=== PATIENT | male | born 1960 | race African-American/Black ===

== ENCOUNTER 2019-08-17 09:57 | Inpatient (IN) | payer OTHER ==
[2019-08-17 11:07] VITALS: BMI 28.5
--- NOTE | 2019-08-17 11:42 | HP ---
CIWA Score Nausea/Vomitin-Mild Nausea/No Vomiting Muscle Tremors: None Anxiety: 1-Mildly Anxious Agitation: 1-Slight > Activity Paroxysmal Sweats: 1-Minimal Palms Moist Orientation: 0-Oriented Tacttile Disturbances: 0-None Auditory Disturbances: 0-None Visual Disturbances: 0-None Headache: 0-None Present CIWA-Ar Total Score: 4 - Admission Criteria OASAS Guidelines: Admission for Medically Managed Detox: Requires at least one of the followin. CIWA greater than 12 2. Seizures within the past 24 hours 3. Delirium tremens within the past 24 hours 4. Hallucinations within the past 24 hours 5. Acute intervention needed for co occurring medical disorder 6. Acute intervention needed for co occurring psychiatric disorder 7. Severe withdrawal that cannot be handled at a lower level of care (continued vomiting, continued diarrhea, abnormal vital signs) requiring intravenous medication and/or fluids 8. 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 cocaine - occasional use tobacco - 3 cigs/day PMHX : hiv + dx 2000 (rf=ST) goes to [facility] , brought meds , htn, cabg x 4 in 2011 @ [facility] . Exam Limitations: No Limitations - Ebola screening Have you traveled outside of the country in the last 21 days: No Have you had contact with anyone from an Ebola affected area: No Do you have a fever: No - Review of Systems Constitutional: Loss of Appetite EENT: reports: Other (glasses - reading) Respiratory: reports: No Symptoms reported Cardiac: reports: No Symptoms Reported GI: reports: Diarrhea, Nausea, Poor Appetite : reports: No Symptoms Reported Musculoskeletal: reports: Joint Pain (shoulder - chronic pain) Integumentary: reports: No Symptoms Reported Neuro: reports: Headache Endocrine: reports: No Symptoms Reported Psychiatric: reports: Orientated x3 Patient History - Smoking Cessation Smoking history: Current some day smoker Have you smoked in the past 12 months: Yes Hx Chewing Tobacco Use: No Initiated information on smoking cessation: Yes 'Breaking Loose' booklet given: 08/17/19 - Substances abused Alcohol Substance route: Oral Frequency: Daily Amount used: (9) 160z can Age of first use: 20 Date of last use: 08/17/19 Admission Physical Exam [facility] - Vital Signs Vital Signs: Vital Signs - 24 hr 08/17/19 10:34 Temperature 97.0 F L Pulse Rate 69 Respiratory 20 Rate Blood Pressure 143/97 - Physical General Appearance: Yes: No Apparent Distress HEENTM: Yes: EOMI, Hearing grossly Normal, Normocephalic, Normal Voice, Other ( upper dentures) Respiratory: Yes: Chest Non-Tender, Lungs Clear, Normal Breath Sounds, No Respiratory Distress, No Accessory Muscle Use Neck: Yes: No masses,lesions,Nodules, Trachea in good position Cardiology: Yes: Regular Rhythm, Regular Rate, S1, S2 Abdominal: Yes: Non Tender, Soft Back: Yes: Normal Inspection Musculoskeletal: Yes: Gait Steady Extremities: Yes: Non-Tender Neurological: Yes: Fully Oriented, Alert, Motor Strength 5/5 Integumentary: Yes: Warm - Diagnostic (1) Alcohol use disorder Current Visit: Yes Status: Acute (2) Cocaine abuse, episodic use Current Visit: Yes Status: Acute Breathalyzer - Breathalyzer Breathalyzer: 0 Urine Drug Screen - Test Device Lot number: [id number] Expiration date: 03/31/20 - Control Is test valid?: Yes - Results Drug screen NEGATIVE: No Urine drug screen results: MARGOT-Cocaine Inpatient Rehab Admission - Rehab Decision to Admit Inpatient rehab admission?: Yes - Initial Determination Are CD services needed?: Yes Free of communicable disease: Yes Not in need of hospitalization: Yes - Rehab Admission Criteria Previous failed treatment: No Poor recovery environment: No Comorbidities: No Lacks judgement: Yes Patient is meeting Inpatient Rehab admission criteria:: Yes
[2019-08-17] MEDS ORDERED: IBUPROFEN 400 MG TABLET (FP) PO PRN (11:56)
[2019-08-17] MEDS ORDERED: LOPERAMIDE HCL 2 MG CAPSULE PO PRN (11:56)
[2019-08-17] MEDS ORDERED: MAGNESIUM HYDROX 2400MG/30ML ORAL SUSPENSION 30 ML CUP PO PRN (11:56)
[2019-08-17] MEDS ORDERED: P-EPHED 60MG/TRIPROLIDI 2.5MG TABLET PO PRN (11:56)
[2019-08-17] MEDS ORDERED: MAG HYDROX/AL HYDROX/SIMETH 30 ML UNIT-DOSE CUP PO PRN (11:56)
[2019-08-17] MEDS ORDERED: hydrOXYzine PAMOATE 25 MG CAPSULE (FP) PO PRN (11:56)
[2019-08-17] MEDS ORDERED: guaiFENesin 200 MG/10 ML 10 ML UNIT-DOSE CUPS PO PRN (11:56)
[2019-08-17] MEDS ORDERED: ACETAMINOPHEN 325 MG TABLET (FP) PO PRN (11:56)
[2019-08-17] MEDS ORDERED: MAGNESIUM CITRATE 300 ML BOTTLE PO PRN (11:56)
[2019-08-17] MEDS ORDERED: MENTHOL/PHENOL 1 EACH UD MM PRN (11:56)
[2019-08-17] MEDS: CLOPIDOGREL BISULFATE 75 MG TABLET (FP) PO SCH (14:16)
[2019-08-17] MEDS: amLODIPine BESYLATE 5 MG TABLET (FP) PO SCH (14:16)
[2019-08-17] MEDS: HYDROCHLOROTHIAZIDE 25 MG TABLET (FP) PO SCH (14:16)
[2019-08-17] MEDS: ASPIRIN 81 MG CHEWABLE TABLETS PO SCH (14:17)
[2019-08-17] MEDS: LOSARTAN POTASSIUM 50 MG TABLET (FP) PO SCH (14:17)
[2019-08-17 15:23] LABS: HEMATOCRIT 39.7 % (35.4-49); HEMOGLOBIN 13.6 GM/dL (11.7-16.9); MCH 31.2 pg (25.7-33.7); MCHC 34.3 g/dl (32.0-35.9); MEAN CELL VOLUME 90.8 fl (80-96); MEAN PLT VOLUME 9.8 fl (7.5-11.1); PLATELET COUNT 230 K/MM3 (134-434); RBC 4.38 M/mm3 (4.00-5.60); RDW 14.7 % (11.9-15.9); WHITE BLOOD COUNT 6.6 K/mm3 (4.0-10.0)
[2019-08-17 15:41] LABS: BILIRUBIN,TOTAL 0.5 mg/dL (0.2-1); BLOOD UREA NITROGEN 35.3 mg/dL (7-18); CALCIUM 9.3 mg/dL (8.5-10.1); CREATININE 2.1 mg/dL (0.55-1.3); TOT PROT 8.9 g/dl (6.4-8.2)
[2019-08-17] MEDS: FENOFIBRIC ACID 135 MG CAP PO SCH (15:46)
[2019-08-17 15:50] LABS: POTASSIUM 2.9 mmol/L (3.5-5.1)
[2019-08-17] MEDS ORDERED: TUBERCULIN PPD 5 TU/0.1ML VIAL ID ONE (15:52)
--- NOTE | 2019-08-17 16:05 | PN ---
[facility] Progress Note Note: S:Patient with abnormal potassium level, elevated creatinine and BUN. On HCTZ, HIV positive. Limited hx in chart. Possible renal impairment(?) Abnormal Lab Results 08/17/19 12:15 Potassium 2.9 L* BUN 35.3 H Creatinine 2.1 H Random Glucose 115 H AST 40 H Total Protein 8.9 H O;P/E:unchanged from admission physical General: no apparent distress HEENTM: normocephalic NEck: supple Lungs: cecy Heart: s1 s2 Neuro: CN 2-12 intact, no neurological deficits. AP: hypokalemia-Potassium 40meq x 3 doses, repeat chemistries. Consult for resident to be placed.
[2019-08-17] MEDS: ETRAVIRINE PO SCH (16:12)
[2019-08-17] MEDS: PATIENT'S OWN MEDICATION (NON-FORMULARY) (Emtricitabine/Tenofov Alafenam [Descovy 200-25 M PO SCH (16:14)
[2019-08-17] MEDS: PATIENT'S OWN MEDICATION (NON-FORMULARY) (Dolutegravir Sodium [Tivicay] 50 MG) PO SCH (16:14)
[2019-08-17] MEDS ORDERED: PT OWN MED DRAWER 7, Y5N ONE (16:16)
[2019-08-17] MEDS ORDERED: POTASSIUM CHLORIDE ORAL LIQUID 20 MEQ/15 ML PO ONE (17:00)
--- NOTE | 2019-08-17 17:20 | CONSULT ---
Consultation: REQUESTING PROVIDER: CONSULT REQUEST: We have been asked to medically evaluate this patient for hypokalemia, MT HISTORY OF PRESENT ILLNESS: 59 year old male with a history of HIV (diagnosed in 2000), hypertension, CABG x4 vessel disease in 2010 here for rehab from alcohol use. Consult placed for hypokalemia 2.9 and elevated creatinine at 2.1. Was told before he had low potassium. Never had kidney disease in the past. No acute complaints. Denies chest pain, palpitations, shortness of breath, nausea, vomiting, diarrhea, fevers, chills. Patient is on HCTZ as a diuretic. Also on losartan. Smoke: 3 cigs/day, 3 years now Alcohol: every day Surgery: quadruple bypass Family: no family history of cancer, heart disease, stroke, kidney disease REVIEW OF SYSTEMS: CONSTITUTIONAL: Absent: fever, chills, diaphoresis, generalized weakness, malaise, loss of appetite, weight change HEENT: Absent: rhinorrhea, nasal congestion, throat pain, throat swelling, difficulty swallowing, mouth swelling, ear pain, eye pain, visual changes CARDIOVASCULAR: Absent: chest pain, syncope, palpitations, irregular heart rate, lightheadedness , peripheral edema RESPIRATORY: Absent: cough, shortness of breath, dyspnea with exertion, orthopnea, wheezing, stridor, hemoptysis GASTROINTESTINAL: Absent: abdominal pain, abdominal distension, nausea, vomiting, diarrhea, constipation, melena, hematochezia GENITOURINARY: Absent: dysuria, frequency, urgency, hesitancy, hematuria, flank pain, genital pain MUSCULOSKELETAL: Absent: myalgia, arthralgia, joint swelling, back pain, neck pain SKIN: Absent: rash, itching, pallor HEMATOLOGIC/IMMUNOLOGIC: Absent: easy bleeding, easy bruising, lymphadenopathy, frequent infections ENDOCRINE: Absent: unexplained weight gain, unexplained weight loss, heat intolerance, cold intolerance NEUROLOGIC: Absent: headache, focal weakness or paresthesias, dizziness, unsteady gait, seizure, mental status changes, bladder or bowel incontinence PSYCHIATRIC: Absent: anxiety, depression, suicidal or homicidal ideation, hallucinations. PHYSICAL EXAMINATION Vital Signs - 24 hr 08/17/19 10:34 Temperature 97.0 F L Pulse Rate 69 Respiratory 20 Rate Blood Pressure 143/97 GENERAL: A&Ox3, no acute distress EYES: PERRLA, EOMI ENT: Moist mucus membranes NECK: No JVD LUNGS: CTA, no wheezes HEART: irregularly regular, no murmurs ABDOMEN: Soft, nontender, BS present MUSCULOSKELETAL: No CVA Tenderness EXTREMITIES: 2+ pulses, no edema. NEUROLOGICAL: Cranial nerves II-XII intact. Laboratory Results - last 24 hr 08/17/19 08/17/19 12:15 12:15 WBC 6.6 RBC 4.38 Hgb 13.6 Hct 39.7 MCV 90.8 MCH 31.2 MCHC 34.3 RDW 14.7 Plt Count 230 MPV 9.8 Sodium 138 Potassium 2.9 L* Chloride 99 Carbon Dioxide 30 Anion Gap 9 BUN 35.3 H Creatinine 2.1 H Est GFR (CKD-EPI)AfAm 39.31 Est GFR (CKD-EPI)NonAf 33.92 Random Glucose 115 H Calcium 9.3 Total Bilirubin 0.5 AST 40 H ALT 44 Alkaline Phosphatase 92 Total Protein 8.9 H Albumin 4.0 Active Medications Generic Name Dose Route Start Last Admin Trade Name Freq PRN Reason Stop Dose Admin Acetaminophen 650 mg 08/17/19 11:56 Tylenol - PO Q4H PRN FEVER Al Hydroxide/Mg Hydroxide 30 ml 08/17/19 11:56 Mylanta Oral Suspension - PO Q6H PRN DYSPEPSIA Amlodipine Besylate 5 mg 08/17/19 13:00 08/17/19 14:16 Norvasc - PO 5 mg DAILY KEM Administration Aspirin 81 mg 08/17/19 13:00 08/17/19 14:17 Asa - PO 81 mg DAILY KEM Administration Atorvastatin Calcium 20 mg 08/17/19 22:00 Lipitor - PO HS [facility] Clopidogrel Bisulfate 75 mg 08/17/19 13:00 08/17/19 14:16 Plavix - PO 75 mg DAILY [facility] Administration Eucalyptus/Menthol/Phenol/Sorbitol 1 each 08/17/19 11:56 Cepastat Lozenge - MM Q4H PRN SORE THROAT Fenofibric Acid 135 mg 08/17/19 13:00 08/17/19 15:46 Trilipix - PO 135 mg DAILY EKM Administration Guaifenesin 10 ml 08/17/19 11:56 Robitussin - PO Q6H PRN COUGH Hydrochlorothiazide 25 mg 08/17/19 13:00 08/17/19 14:16 Hctz - PO 25 mg DAILY KEM Administration Hydroxyzine Pamoate 25 mg 08/17/19 11:56 Vistaril - PO Q4H PRN AGITATION Loperamide HCl 4 mg 08/17/19 11:56 Imodium - PO Q6H PRN DIARRHEA Losartan Potassium 100 mg 08/17/19 13:00 08/17/19 14:17 Cozaar - PO 100 mg DAILY KEM Administration Magnesium Citrate 300 ml 08/17/19 11:56 Citroma - PO Q48H PRN CONSTIPATION Magnesium Hydroxide 30 ml 08/17/19 11:56 Milk Of Magnesia - PO DAILY PRN CONSTIPATION Melatonin 5 mg 08/17/19 22:00 Melatonin PO HS PRN INSOMNIA Metoprolol Succinate 50 mg 08/17/19 13:00 08/17/19 15:45 Toprol Xl - PO 50 mg DAILY KEM Administration Non-Formulary Medication 50 mg 08/17/19 12:00 08/17/19 16:14 Dolutegravir Sodium [Tivicay] PO 50 mg DAILY KEM Administration Non-Formulary Medication 1 each 08/17/19 12:00 08/17/19 16:14 Emtricitabine/Tenofov Alafenam [Descovy 200-25 Mg Tablet (Nf)] PO 1 each DAILY [facility] Administration Non-Formulary Medication 400 mg 08/17/19 12:00 08/17/19 16:12 Etravirine [Intelence -] PO 400 mg DAILY@0900 [facility] Administration Potassium Chloride 40 meq 08/18/19 06:00 Potassium Chloride Oral Liquid PO 08/18/19 10:01 BID [facility] Multivit/Folic Acid/Iron 1 tab 08/18/19 10:00 Vitamins (Sjr) - PO DAILY [facility] Pseudoephedrine/Triprolidine 1 combo 08/17/19 11:56 Actifed - PO TID PRN NASAL CONGESTION Thiamine HCl 100 mg 08/17/19 22:00 Vitamin B1 - PO HS [facility] ASSESSMENT/PLAN: 59 year old male with a history of HIV (diagnosed in 2000), hypertension, CABG x4 vessel disease in 2010 here for rehab from alcohol use. Consult placed for hypokalemia 2.9 and elevated creatinine at 2.1. #Hypokalemia: potassium measured 2.9 without known baseline; there are many differentials for hypokalemia in this patient including chronic alcoholism, diuretic use, hypomagnesemia, renal dysfunction; patient is not symptomatic at present -recheck potassium -check magnesium and replete if necessary -hold HCTZ tonight (would also hold losartan due to elevated creatinine) -would replete with 40mg KCl PO BID for 2 days -would do EKG -recheck BMP in AM -if continues to be low, would check 24 hour urine potassium excretion as outpatient #Acute Kidney Injury: likely 2/2 prerenal azotemia from decreased renal perfusion; chronic alcoholism a likely contributor -check a urinalysis -would opt to give 1 bag fluids intravenously, preferably with lactated ringers due to the potassium being low, but normal saline otherwise -hold losartan, HCTZ for 1 day as this can exacerbate acute kidney injury -if not normalized, would check urine electrolytes/ (Urine sodium/urine urea/ urine creatinine) to determine type of acute kidney injury -could be a component of chronic kidney disease as patient has history of hypertension with unknown compliance of his medications -recheck BMP in AM -if not improved, would need renal ultrasound and nephrology evaluation Dereck Meza D.O.,PGY3 Visit type - Emergency Visit Emergency Visit: No - New Patient This patient is new to me today: Yes Date on this admission: 08/17/19 - Critical Care Critical Care patient: No ATTENDING PHYSICIAN STATEMENT I saw and evaluated the patient. I reviewed the resident's note and discussed the case with the resident. I agree with the resident's findings and plan as documented. SUBJECTIVE: OBJECTIVE: ASSESSMENT AND PLAN:
[2019-08-17] MEDS ORDERED: SODIUM CHLORIDE 500 ML IV ONE ×2 (18:00)
[2019-08-17] MEDS: MELATONIN 5 MG TABLETS PO PRN (21:35)
[2019-08-17] MEDS: ATORVASTATIN CA 20 MG TABLET (FP) PO SCH (21:35)
[2019-08-17] MEDS: THIAMINE HCL 100 MG TABLET (FP) PO SCH (21:35)
--- NOTE | 2019-08-18 07:59 | PN ---
Teaching Attending Note Name of Resident: Dereck Meza ATTENDING PHYSICIAN STATEMENT I saw and evaluated the patient. I reviewed the resident's note and discussed the case with the resident. I agree with the resident's findings and plan as documented. SUBJECTIVE: OBJECTIVE: ASSESSMENT AND PLAN:
[2019-08-18] MEDS ORDERED: PT OWN MED DRAWER 7, Y5N ONE (08:46)
--- NOTE | 2019-08-18 09:42 | CONSULT ---
[facility] Psychiatric Consult - Data Date of interview: 08/18/19 Admission source: [facility] residence on [address] [place] [address] Identifying data: Me Harris is a 59 years old Black male, father of a 33 years old daughter, unemployed receving [facility], [facility] residence admitted to [facility] on 08/17/19 for inpatient rehab for alcohol and cocaine Substance Abuse History: Reports history of alcohol and cocaine use. Refer to addiction counselor summary for further information Medical History: Significant for HIV+ since 2000, hypertension, coronary artery disease/myocardial infarction and history of coronary artery bypass graft x4 in 2010. Smokes 4 cigarettes daily Psychiatric History: Denies history of previous psychiatric treatment. However reports sleeping poorly Physical/Sexual Abuse/Trauma History: Denies history of emotional, physical or sexual abuse as well as DV relationship Additional Comment: Reports history of multiple arrests including one felony conviction. Denies being on parole/probation at present Mental Status Exam - Mental Status Exam Alert and Oriented to: Time, Place, Person Patient Appearance: Well Groomed Mood: Hopeful, Euthymic Patient Behavior: Cooperative Speech Pattern: Clear Voice Loudness: Normal Thought Process: Intact, Goal Oriented Thought Disorder: Not Present Hallucinations: Denies Suicidal Ideation: Denies Homicidal Ideation: Denies Insight/Judgement: Fair Sleep: Poorly Appetite: Fair Muscle strength/Tone: Normal Gait/Station: Normal Psychiatric Findings - Problem List ([place] 1, 2,3) (1) Substance-induced sleep disorder Current Visit: Yes Status: Acute (2) Alcohol dependence Current Visit: Yes Status: Acute (3) Cocaine abuse Current Visit: Yes Status: Acute (4) Cocaine abuse Current Visit: Yes Status: Acute (5) Nicotine dependence Current Visit: Yes Status: Chronic (6) HIV (human immunodeficiency virus infection) Current Visit: Yes Status: Chronic (7) HTN (hypertension) Current Visit: Yes Status: Chronic (8) CAD (coronary artery disease) Current Visit: Yes Status: Acute (9) S/P CABG (coronary artery bypass graft) Current Visit: Yes Status: Resolved - Initial Treatment Plan Initial Treatment Plan: 1) Start Melatonin 5 mg po HS prn for insomnia. 2) Continue inpatient rehabilitation
[2019-08-18] MEDS: PATIENT'S OWN MEDICATION (NON-FORMULARY) (Dolutegravir Sodium [Tivicay] 50 MG) PO SCH (10:59)
[2019-08-18] MEDS: ETRAVIRINE PO SCH (11:00)
[2019-08-18] MEDS: PATIENT'S OWN MEDICATION (NON-FORMULARY) (Emtricitabine/Tenofov Alafenam [Descovy 200-25 M PO SCH (11:00)
[2019-08-18] MEDS: amLODIPine BESYLATE 5 MG TABLET (FP) PO SCH (11:01)
[2019-08-18] MEDS: ASPIRIN 81 MG CHEWABLE TABLETS PO SCH (11:01)
[2019-08-18] MEDS: CLOPIDOGREL BISULFATE 75 MG TABLET (FP) PO SCH (11:01)
[2019-08-18] MEDS: PRENATAL VITAMINS W/ FOLIC ACID TABLET (FP) PO SCH (11:01)
[2019-08-18] MEDS: POTASSIUM CHLORIDE ORAL LIQUID 20 MEQ/15 ML PO SCH ×2 (11:01→21:22)
[2019-08-18] MEDS: FENOFIBRIC ACID 135 MG CAP PO SCH (11:03)
[2019-08-18] MEDS: ATORVASTATIN CA 20 MG TABLET (FP) PO SCH (21:22)
[2019-08-18] MEDS: THIAMINE HCL 100 MG TABLET (FP) PO SCH (21:22)
[2019-08-18 22:53] LABS: URINE APPEARANCE CLEAR; URINE BILIRUBIN NEGATIVE (NEGATIVE); URINE COLOR YELLOW; URINE GLUCOSE (UA) NEGATIVE (NEGATIVE); URINE KETONE NEGATIVE (NEGATIVE); URINE LEUK ESTERASE NEGATIVE (NEGATIVE); URINE NITRITE NEGATIVE (NEGATIVE); URINE PROTEIN NEGATIVE (NEGATIVE); URINE UROBILINOGEN 0.2 mg/dL (0.2-1.0)
[2019-08-19] MEDS ORDERED: PT OWN MED DRAWER 7, Y5N ONE (08:43)
[2019-08-19] MEDS: CLOPIDOGREL BISULFATE 75 MG TABLET (FP) PO SCH (09:20)
[2019-08-19] MEDS: PRENATAL VITAMINS W/ FOLIC ACID TABLET (FP) PO SCH (09:20)
[2019-08-19] MEDS: amLODIPine BESYLATE 5 MG TABLET (FP) PO SCH (09:21)
[2019-08-19] MEDS: ETRAVIRINE PO SCH (09:21)
[2019-08-19] MEDS: ASPIRIN 81 MG CHEWABLE TABLETS PO SCH (09:21)
[2019-08-19] MEDS: PATIENT'S OWN MEDICATION (NON-FORMULARY) (Emtricitabine/Tenofov Alafenam [Descovy 200-25 M PO SCH (09:21)
[2019-08-19] MEDS: PATIENT'S OWN MEDICATION (NON-FORMULARY) (Dolutegravir Sodium [Tivicay] 50 MG) PO SCH (09:21)
[2019-08-19] MEDS: HYDROCHLOROTHIAZIDE 25 MG TABLET (FP) PO SCH (09:22)
[2019-08-19] MEDS: FENOFIBRIC ACID 135 MG CAP PO SCH (09:22)
[2019-08-19] MEDS: LOSARTAN POTASSIUM 50 MG TABLET (FP) PO SCH (09:23)
[2019-08-19 11:39] LABS: BLOOD UREA NITROGEN 27.4 mg/dL (7-18); CALCIUM 8.9 mg/dL (8.5-10.1); CREATININE 1.5 mg/dL (0.55-1.3); POTASSIUM 3.7 mmol/L (3.5-5.1)
--- NOTE | 2019-08-19 20:13 | EKG ---
Test Reason : Blood Pressure : / mmHG Vent. Rate : 082 BPM Atrial Rate : 082 BPM P-R Int : 172 ms QRS Dur : 096 ms QT Int : 390 ms P-R-T Axes : 055 062 167 degrees QTc Int : 455 ms NORMAL SINUS RHYTHM NONSPECIFIC T WAVE ABNORMALITY ABNORMAL ECG NO PREVIOUS ECGS AVAILABLE Confirmed by MD COLUMBA, CARLOS EDUARDO ([id number]) on 08/19/2019 8:13:06 PM Referred By: CRISTIANO TREADWELL Confirmed By:CARLOS EDUARDO WATERMAN MD
[2019-08-19] MEDS: MELATONIN 5 MG TABLETS PO PRN (21:23)
[2019-08-19] MEDS: ATORVASTATIN CA 20 MG TABLET (FP) PO SCH (21:23)
[2019-08-19] MEDS: THIAMINE HCL 100 MG TABLET (FP) PO SCH (21:23)
[2019-08-20] MEDS ORDERED: PT OWN MED DRAWER 7, Y5N ONE ×2 (08:33→10:15)
[2019-08-20] MEDS: amLODIPine BESYLATE 5 MG TABLET (FP) PO SCH (09:45)
[2019-08-20] MEDS: PATIENT'S OWN MEDICATION (NON-FORMULARY) (Emtricitabine/Tenofov Alafenam [Descovy 200-25 M PO SCH (09:45)
[2019-08-20] MEDS: LOSARTAN POTASSIUM 50 MG TABLET (FP) PO SCH (09:45)
[2019-08-20] MEDS: ETRAVIRINE PO SCH (09:45)
[2019-08-20] MEDS: ASPIRIN 81 MG CHEWABLE TABLETS PO SCH (09:45)
[2019-08-20] MEDS: HYDROCHLOROTHIAZIDE 25 MG TABLET (FP) PO SCH (09:45)
[2019-08-20] MEDS: FENOFIBRIC ACID 135 MG CAP PO SCH (09:45)
[2019-08-20] MEDS: PRENATAL VITAMINS W/ FOLIC ACID TABLET (FP) PO SCH (09:45)
[2019-08-20] MEDS: CLOPIDOGREL BISULFATE 75 MG TABLET (FP) PO SCH (09:45)
[2019-08-20] MEDS: PATIENT'S OWN MEDICATION (NON-FORMULARY) (Dolutegravir Sodium [Tivicay] 50 MG) PO SCH (09:45)
[2019-08-20] MEDS: ATORVASTATIN CA 20 MG TABLET (FP) PO SCH (21:24)
[2019-08-20] MEDS: THIAMINE HCL 100 MG TABLET (FP) PO SCH (21:24)
[2019-08-20] MEDS: MELATONIN 5 MG TABLETS PO PRN (21:24)
[2019-08-21] MEDS ORDERED: PT OWN MED DRAWER 7, Y5N ONE (09:01)
[2019-08-21] MEDS: HYDROCHLOROTHIAZIDE 25 MG TABLET (FP) PO SCH (10:32)
[2019-08-21] MEDS: CLOPIDOGREL BISULFATE 75 MG TABLET (FP) PO SCH (10:32)
[2019-08-21] MEDS: PRENATAL VITAMINS W/ FOLIC ACID TABLET (FP) PO SCH (10:32)
[2019-08-21] MEDS: FENOFIBRIC ACID 135 MG CAP PO SCH (10:32)
[2019-08-21] MEDS: amLODIPine BESYLATE 5 MG TABLET (FP) PO SCH (10:32)
[2019-08-21] MEDS: LOSARTAN POTASSIUM 50 MG TABLET (FP) PO SCH (10:32)
[2019-08-21] MEDS: PATIENT'S OWN MEDICATION (NON-FORMULARY) (Emtricitabine/Tenofov Alafenam [Descovy 200-25 M PO SCH (10:33)
[2019-08-21] MEDS: ASPIRIN 81 MG CHEWABLE TABLETS PO SCH (10:33)
[2019-08-21] MEDS: PATIENT'S OWN MEDICATION (NON-FORMULARY) (Dolutegravir Sodium [Tivicay] 50 MG) PO SCH (10:33)
[2019-08-21] MEDS: ETRAVIRINE PO SCH (10:33)
[2019-08-21] MEDS: THIAMINE HCL 100 MG TABLET (FP) PO SCH (21:23)
[2019-08-21] MEDS: ATORVASTATIN CA 20 MG TABLET (FP) PO SCH (21:23)
[2019-08-21] MEDS: MELATONIN 5 MG TABLETS PO PRN (21:23)
[2019-08-22] MEDS: ASPIRIN 81 MG CHEWABLE TABLETS PO SCH (10:00)
[2019-08-22] MEDS: LOSARTAN POTASSIUM 50 MG TABLET (FP) PO SCH (10:00)
[2019-08-22] MEDS: CLOPIDOGREL BISULFATE 75 MG TABLET (FP) PO SCH (10:00)
[2019-08-22] MEDS: PATIENT'S OWN MEDICATION (NON-FORMULARY) (Dolutegravir Sodium [Tivicay] 50 MG) PO SCH (10:00)
[2019-08-22] MEDS: amLODIPine BESYLATE 5 MG TABLET (FP) PO SCH (10:00)
[2019-08-22] MEDS: HYDROCHLOROTHIAZIDE 25 MG TABLET (FP) PO SCH (10:00)
[2019-08-22] MEDS: PRENATAL VITAMINS W/ FOLIC ACID TABLET (FP) PO SCH (10:00)
[2019-08-22] MEDS: FENOFIBRIC ACID 135 MG CAP PO SCH (10:01)
[2019-08-22] MEDS: PATIENT'S OWN MEDICATION (NON-FORMULARY) (Emtricitabine/Tenofov Alafenam [Descovy 200-25 M PO SCH (10:01)
[2019-08-22] MEDS: ETRAVIRINE PO SCH (10:01)
[2019-08-22] MEDS: THIAMINE HCL 100 MG TABLET (FP) PO SCH (21:20)
[2019-08-22] MEDS: ATORVASTATIN CA 20 MG TABLET (FP) PO SCH (21:20)
[2019-08-22] MEDS: MELATONIN 5 MG TABLETS PO PRN (21:20)
[2019-08-23] MEDS ORDERED: PT OWN MED DRAWER 7, Y5N ONE (08:45)
[2019-08-23] MEDS: ASPIRIN 81 MG CHEWABLE TABLETS PO SCH (10:01)
[2019-08-23] MEDS: PRENATAL VITAMINS W/ FOLIC ACID TABLET (FP) PO SCH (10:01)
[2019-08-23] MEDS: PATIENT'S OWN MEDICATION (NON-FORMULARY) (Dolutegravir Sodium [Tivicay] 50 MG) PO SCH (10:01)
[2019-08-23] MEDS: PATIENT'S OWN MEDICATION (NON-FORMULARY) (Emtricitabine/Tenofov Alafenam [Descovy 200-25 M PO SCH (10:02)
[2019-08-23] MEDS: amLODIPine BESYLATE 5 MG TABLET (FP) PO SCH (10:02)
[2019-08-23] MEDS: LOSARTAN POTASSIUM 50 MG TABLET (FP) PO SCH (10:02)
[2019-08-23] MEDS: HYDROCHLOROTHIAZIDE 25 MG TABLET (FP) PO SCH (10:02)
[2019-08-23] MEDS: CLOPIDOGREL BISULFATE 75 MG TABLET (FP) PO SCH (10:02)
[2019-08-23] MEDS: ETRAVIRINE PO SCH (10:02)
[2019-08-23] MEDS: FENOFIBRIC ACID 135 MG CAP PO SCH (10:03)
[2019-08-23] MEDS: MELATONIN 5 MG TABLETS PO PRN (21:22)
[2019-08-23] MEDS: THIAMINE HCL 100 MG TABLET (FP) PO SCH (21:22)
[2019-08-23] MEDS: ATORVASTATIN CA 20 MG TABLET (FP) PO SCH (21:22)
[2019-08-24] MEDS: PATIENT'S OWN MEDICATION (NON-FORMULARY) (Dolutegravir Sodium [Tivicay] 50 MG) PO SCH (10:40)
[2019-08-24] MEDS: LOSARTAN POTASSIUM 50 MG TABLET (FP) PO SCH (10:40)
[2019-08-24] MEDS: ASPIRIN 81 MG CHEWABLE TABLETS PO SCH (10:40)
[2019-08-24] MEDS: ETRAVIRINE PO SCH (10:40)
[2019-08-24] MEDS: CLOPIDOGREL BISULFATE 75 MG TABLET (FP) PO SCH (10:41)
[2019-08-24] MEDS: HYDROCHLOROTHIAZIDE 25 MG TABLET (FP) PO SCH (10:41)
[2019-08-24] MEDS: PRENATAL VITAMINS W/ FOLIC ACID TABLET (FP) PO SCH (10:41)
[2019-08-24] MEDS: amLODIPine BESYLATE 5 MG TABLET (FP) PO SCH (10:41)
[2019-08-24] MEDS: PATIENT'S OWN MEDICATION (NON-FORMULARY) (Emtricitabine/Tenofov Alafenam [Descovy 200-25 M PO SCH (10:41)
[2019-08-24] MEDS: FENOFIBRIC ACID 135 MG CAP PO SCH (10:42)
--- NOTE | 2019-08-24 15:03 | PN ---
S Progress Note (SOAP) Subjective: This AM at approximately 9AM was informed that the patient's tongue was cut and bleeding and the bleeding did not stop. PMHx of a tongue laceration that also bleed profusely, but healed. Patient is on plavix and aspirin. Objective: P/E HEENTM: Difficult to visualize the laceration because of the bleeding. Profuse bleeding the slows when pressure is held but does not stop. Red, oozing rather than spurting, so it is unlikely an artery was cut. Neuro: CN 2-12 intact. Lungs: clear Heart: s1 s2 CBC, BMP 08/17/19 12:15 08/19/19 10:20 Vital Signs (72 hours) 08/22/19 08/22/19 08/22/19 03:30 07:04 10:35 Temperature 97.8 F Pulse Rate 77 72 Respiratory 18 18 18 Rate Blood Pressure 157/95 168/94 08/23/19 08/23/19 08/23/19 00:30 03:30 06:49 Temperature 97.9 F Pulse Rate 71 Respiratory 20 18 18 Rate Blood Pressure 156/96 08/23/19 08/24/19 08/24/19 09:20 00:30 03:30 Temperature Pulse Rate 77 Respiratory 18 18 Rate Blood Pressure 158/97 08/24/19 08/24/19 08/24/19 07:03 09:30 10:05 Temperature 97.8 F Pulse Rate 69 89 87 Respiratory 18 18 18 Rate Blood Pressure 152/97 156/98 150/97 08/24/19 14:57 Assessment: laceration to tongue with excessive bleeding r/t anticoagulant medications 08/24/19 14:59 Plan: Pressure held. [facility] informed and patient transferred to [facility] ER, dissolvable sutures place. Patient instructed to drink only warm-cool beverages , not to pick or rub the area, and a soft diet was ordered with Ensure 240ml TID while sutures are in and laceration is healing. All meds to be crushed, dissolved in water or mix in apple sauce. The HIV Clinician Warmline was called for consultation on HIV medications. At this time, they recommend crushing all medications for patient.
[2019-08-24] MEDS: MELATONIN 5 MG TABLETS PO PRN (21:37)
[2019-08-24] MEDS: ATORVASTATIN CA 20 MG TABLET (FP) PO SCH (21:37)
[2019-08-24] MEDS: THIAMINE HCL 100 MG TABLET (FP) PO SCH (21:37)
[2019-08-25] MEDS: HYDROCHLOROTHIAZIDE 25 MG TABLET (FP) PO SCH (09:54)
[2019-08-25] MEDS: ASPIRIN 81 MG CHEWABLE TABLETS PO SCH (09:54)
[2019-08-25] MEDS: LOSARTAN POTASSIUM 50 MG TABLET (FP) PO SCH (09:54)
[2019-08-25] MEDS: ETRAVIRINE PO SCH (09:55)
[2019-08-25] MEDS: PATIENT'S OWN MEDICATION (NON-FORMULARY) (Emtricitabine/Tenofov Alafenam [Descovy 200-25 M PO SCH (09:57)
[2019-08-25] MEDS: PATIENT'S OWN MEDICATION (NON-FORMULARY) (Dolutegravir Sodium [Tivicay] 50 MG) PO SCH (09:57)
[2019-08-25] MEDS: amLODIPine BESYLATE 5 MG TABLET (FP) PO SCH (09:58)
[2019-08-25] MEDS: CLOPIDOGREL BISULFATE 75 MG TABLET (FP) PO SCH (09:59)
[2019-08-25] MEDS: FENOFIBRIC ACID 135 MG CAP PO SCH (09:59)
[2019-08-25] MEDS: PRENATAL VITAMINS W/ FOLIC ACID TABLET (FP) PO SCH (09:59)
[2019-08-25] MEDS: THIAMINE HCL 100 MG TABLET (FP) PO SCH (21:48)
[2019-08-25] MEDS: ATORVASTATIN CA 20 MG TABLET (FP) PO SCH (21:48)
[2019-08-25] MEDS: MELATONIN 5 MG TABLETS PO PRN (21:49)
[2019-08-26] MEDS: CLOPIDOGREL BISULFATE 75 MG TABLET (FP) PO SCH (10:00)
[2019-08-26] MEDS: FENOFIBRIC ACID 135 MG CAP PO SCH (10:00)
[2019-08-26] MEDS: amLODIPine BESYLATE 5 MG TABLET (FP) PO SCH (10:00)
[2019-08-26] MEDS: PATIENT'S OWN MEDICATION (NON-FORMULARY) (Emtricitabine/Tenofov Alafenam [Descovy 200-25 M PO SCH (10:01)
[2019-08-26] MEDS: PRENATAL VITAMINS W/ FOLIC ACID TABLET (FP) PO SCH (10:01)
[2019-08-26] MEDS: ETRAVIRINE PO SCH (10:01)
[2019-08-26] MEDS: HYDROCHLOROTHIAZIDE 25 MG TABLET (FP) PO SCH (10:01)
[2019-08-26] MEDS: LOSARTAN POTASSIUM 50 MG TABLET (FP) PO SCH (10:01)
[2019-08-26] MEDS: ASPIRIN 81 MG CHEWABLE TABLETS PO SCH (10:01)
[2019-08-26] MEDS: PATIENT'S OWN MEDICATION (NON-FORMULARY) (Dolutegravir Sodium [Tivicay] 50 MG) PO SCH (10:01)
[2019-08-26] MEDS: ATORVASTATIN CA 20 MG TABLET (FP) PO SCH (22:07)
[2019-08-26] MEDS: THIAMINE HCL 100 MG TABLET (FP) PO SCH (22:07)
[2019-08-26] MEDS: MELATONIN 5 MG TABLETS PO PRN (22:08)
[2019-08-27] MEDS: HYDROCHLOROTHIAZIDE 25 MG TABLET (FP) PO SCH (08:29)
[2019-08-27] MEDS: FENOFIBRIC ACID 135 MG CAP PO SCH (10:21)
[2019-08-27] MEDS: ETRAVIRINE PO SCH (10:22)
[2019-08-27] MEDS: LOSARTAN POTASSIUM 50 MG TABLET (FP) PO SCH (10:22)
[2019-08-27] MEDS: amLODIPine BESYLATE 5 MG TABLET (FP) PO SCH (10:22)
[2019-08-27] MEDS: CLOPIDOGREL BISULFATE 75 MG TABLET (FP) PO SCH (10:22)
[2019-08-27] MEDS: PATIENT'S OWN MEDICATION (NON-FORMULARY) (Dolutegravir Sodium [Tivicay] 50 MG) PO SCH (10:22)
[2019-08-27] MEDS: PRENATAL VITAMINS W/ FOLIC ACID TABLET (FP) PO SCH (10:22)
[2019-08-27] MEDS: ASPIRIN 81 MG CHEWABLE TABLETS PO SCH (10:22)
[2019-08-27] MEDS: PATIENT'S OWN MEDICATION (NON-FORMULARY) (Emtricitabine/Tenofov Alafenam [Descovy 200-25 M PO SCH (10:22)
[2019-08-27] MEDS: THIAMINE HCL 100 MG TABLET (FP) PO SCH (21:31)
[2019-08-27] MEDS: ATORVASTATIN CA 20 MG TABLET (FP) PO SCH (21:31)
[2019-08-27] MEDS: MELATONIN 5 MG TABLETS PO PRN (21:32)
[2019-08-28] MEDS: HYDROCHLOROTHIAZIDE 25 MG TABLET (FP) PO SCH (06:17)
[2019-08-28] MEDS: ETRAVIRINE PO SCH (10:23)
[2019-08-28] MEDS: PATIENT'S OWN MEDICATION (NON-FORMULARY) (Emtricitabine/Tenofov Alafenam [Descovy 200-25 M PO SCH (10:23)
[2019-08-28] MEDS: PATIENT'S OWN MEDICATION (NON-FORMULARY) (Dolutegravir Sodium [Tivicay] 50 MG) PO SCH (10:24)
[2019-08-28] MEDS: PRENATAL VITAMINS W/ FOLIC ACID TABLET (FP) PO SCH (10:25)
[2019-08-28] MEDS: amLODIPine BESYLATE 5 MG TABLET (FP) PO SCH (10:25)
[2019-08-28] MEDS: CLOPIDOGREL BISULFATE 75 MG TABLET (FP) PO SCH (10:25)
[2019-08-28] MEDS: FENOFIBRIC ACID 135 MG CAP PO SCH (10:25)
[2019-08-28] MEDS: ASPIRIN 81 MG CHEWABLE TABLETS PO SCH (11:38)
[2019-08-28] MEDS: LOSARTAN POTASSIUM 50 MG TABLET (FP) PO SCH (11:38)
[2019-08-28] MEDS: THIAMINE HCL 100 MG TABLET (FP) PO SCH (21:17)
[2019-08-28] MEDS: MELATONIN 5 MG TABLETS PO PRN (21:17)
[2019-08-28] MEDS: ATORVASTATIN CA 20 MG TABLET (FP) PO SCH (21:17)
[2019-08-29] MEDS: HYDROCHLOROTHIAZIDE 25 MG TABLET (FP) PO SCH (06:00)
[2019-08-29] MEDS: CLOPIDOGREL BISULFATE 75 MG TABLET (FP) PO SCH (10:07)
[2019-08-29] MEDS: amLODIPine BESYLATE 5 MG TABLET (FP) PO SCH (10:07)
[2019-08-29] MEDS: LOSARTAN POTASSIUM 50 MG TABLET (FP) PO SCH (10:07)
[2019-08-29] MEDS: FENOFIBRIC ACID 135 MG CAP PO SCH (10:07)
[2019-08-29] MEDS: PRENATAL VITAMINS W/ FOLIC ACID TABLET (FP) PO SCH (10:07)
[2019-08-29] MEDS: PATIENT'S OWN MEDICATION (NON-FORMULARY) (Dolutegravir Sodium [Tivicay] 50 MG) PO SCH (10:08)
[2019-08-29] MEDS: ETRAVIRINE PO SCH (10:09)
[2019-08-29] MEDS: PATIENT'S OWN MEDICATION (NON-FORMULARY) (Emtricitabine/Tenofov Alafenam [Descovy 200-25 M PO SCH (10:09)
[2019-08-29] MEDS: ASPIRIN 81 MG CHEWABLE TABLETS PO SCH (10:10)
[2019-08-29] MEDS: ATORVASTATIN CA 20 MG TABLET (FP) PO SCH (21:30)
[2019-08-29] MEDS: THIAMINE HCL 100 MG TABLET (FP) PO SCH (21:30)
[2019-08-29] MEDS: MELATONIN 5 MG TABLETS PO PRN (21:30)
[2019-08-30] MEDS: HYDROCHLOROTHIAZIDE 25 MG TABLET (FP) PO SCH (06:11)
[2019-08-30] MEDS ORDERED: PT OWN MED DRAWER 7, Y5N ONE (08:44)
[2019-08-30] MEDS: LOSARTAN POTASSIUM 50 MG TABLET (FP) PO SCH (10:08)
[2019-08-30] MEDS: FENOFIBRIC ACID 135 MG CAP PO SCH (10:09)
[2019-08-30] MEDS: PRENATAL VITAMINS W/ FOLIC ACID TABLET (FP) PO SCH (10:09)
[2019-08-30] MEDS: amLODIPine BESYLATE 5 MG TABLET (FP) PO SCH (10:09)
[2019-08-30] MEDS: CLOPIDOGREL BISULFATE 75 MG TABLET (FP) PO SCH (10:09)
[2019-08-30] MEDS: ASPIRIN 81 MG CHEWABLE TABLETS PO SCH (10:09)
[2019-08-30] MEDS: ETRAVIRINE PO SCH (10:10)
[2019-08-30] MEDS: PATIENT'S OWN MEDICATION (NON-FORMULARY) (Emtricitabine/Tenofov Alafenam [Descovy 200-25 M PO SCH (10:10)
[2019-08-30] MEDS: PATIENT'S OWN MEDICATION (NON-FORMULARY) (Dolutegravir Sodium [Tivicay] 50 MG) PO SCH (10:11)
[2019-08-30] MEDS: ATORVASTATIN CA 20 MG TABLET (FP) PO SCH (21:20)
[2019-08-30] MEDS: THIAMINE HCL 100 MG TABLET (FP) PO SCH (21:20)
[2019-08-30] MEDS: MELATONIN 5 MG TABLETS PO PRN (21:20)
[2019-08-31] MEDS: HYDROCHLOROTHIAZIDE 25 MG TABLET (FP) PO SCH (06:33)
[2019-08-31 07:28] VITALS: TEMP 97.5
[2019-08-31] MEDS ORDERED: PT OWN MED DRAWER 7, Y5N ONE (09:00)
--- NOTE | 2019-08-31 09:22 | DS ---
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 Denies seizures , + blackouts,claims he has tremors, prior detox about 7 yrs ago . cocaine - occasional use tobacco - 3 cigs/day PMHX : hiv + dx 2000; goes to [facility]; brought meds, htn, cabg x 4 in 2011 @ [facility] - Discharge Physical Exam Vital Signs: Vital Signs Temperature 97.5 F L 08/31/19 07:27 Pulse Rate 79 08/31/19 07:27 Respiratory Rate 18 08/31/19 07:27 Blood Pressure 158/99 08/31/19 07:27 O2 Sat by Pulse Oximetry (%) Pertinent Admission Physical Exam Findings: Physical General Appearance: No Apparent Distress HEENTM: Normocephalic, upper dentures, healed scar on tongue from laceration- wound edges approximated, midline, normocephalic Respiratory: Lungs Clear, Neck: supple, Trachea in good position Cardiology: Regular Rhythm & Rate, S1, S2 Abdominal: +BS, Non Tender, Soft Musculoskeletal: Gait Steady, full weight bearing, full ROM Neurological: CN2-12 intact; Motor Strength 5/5 Lymph: No palpable lymph nodes - Treatment Discharge Condition: Discharge condition good (Patient referred to [facility] in [place]; medically stable for discharge.) Hospital Course: Patient had 1:1 meetings with his counselor, attended groups, was adherent to his medication regimen and treatment plan. Patient cut his tongue while in rehab , because he is on anticoagulants, it required emergency treatment and the patient was transferred to [facility] for treatment. Dissolvable stitches were placed and the laceration has healed. Patient tolerated the procedure well, followed aftercare instructions, and was satisfied with the treatment and experience. - Medication Discharge Medications: Ambulatory Orders Amlodipine Besylate [Norvasc -] 5 mg PO DAILY 08/17/19 Aspirin [ASA -] 81 mg PO DAILY 08/17/19 Atorvastatin Calcium 20 mg PO DAILY 08/17/19 Clopidogrel Bisulfate [Clopidogrel] 75 mg PO DAILY 08/17/19 Dolutegravir Sodium [Tivicay] 50 mg PO DAILY 08/17/19 Emtricitabine/Tenofov Alafenam [Descovy 200-25 mg Tablet (Nf)] 1 each PO DAILY 08/17/19 Etravirine [Intelence -] 400 mg PO DAILY 08/17/19 Fenofibrate Nanocrystallized [Fenofibrate] 145 mg PO DAILY 08/17/19 Folic Acid 1 mg PO DAILY 08/17/19 Hydrochlorothiazide [Hctz -] 25 mg PO DAILY 08/17/19 Losartan Potassium [Cozaar] 100 mg PO DAILY 08/17/19 Metoprolol Succinate 50 mg PO DAILY 08/17/19 Multivitamin,Therapeutic [Thera] 1 each PO DAILY 08/17/19 Thiamine HCl [Vitamin B1 -] 50 mg PO DAILY 08/17/19 - Medication-Assisted Treatment (MAT) Medication-Assisted Treatment (MAT): No - Discharge Instructions Diet, activity, other medical instructions: Diet: as tolerated Activity: as tolerated Other medical instructions: Please follow up with aftercare referral. Please make an appointment with your PCP and/or HIV specialist. - Diagnosis (1) Alcohol dependence Current Visit: Yes Status: Chronic Qualifiers: Substance use status: uncomplicated Qualified Code(s): F10.20 - Alcohol dependence, uncomplicated (2) Laceration of tongue Current Visit: No Status: Resolved - Follow-up Referral Minutes to complete discharge: 20 - AMA Did Patient Leave Against Medical Advice: No Additional Comments: Patient reports he does not need any prescriptions because he has medication refills at his pharmacy.
[2019-08-31 09:36] VITALS: BP 164/96; PULSE 84
[2019-08-31] MEDS: CLOPIDOGREL BISULFATE 75 MG TABLET (FP) PO SCH (10:26)
[2019-08-31] MEDS: PRENATAL VITAMINS W/ FOLIC ACID TABLET (FP) PO SCH (10:26)
[2019-08-31] MEDS: LOSARTAN POTASSIUM 50 MG TABLET (FP) PO SCH (10:27)
[2019-08-31] MEDS: ASPIRIN 81 MG CHEWABLE TABLETS PO SCH (10:27)
[2019-08-31] MEDS: amLODIPine BESYLATE 5 MG TABLET (FP) PO SCH (10:27)
[2019-08-31] MEDS: ETRAVIRINE PO SCH (10:28)
[2019-08-31] MEDS: PATIENT'S OWN MEDICATION (NON-FORMULARY) (Dolutegravir Sodium [Tivicay] 50 MG) PO SCH (10:28)
[2019-08-31] MEDS: PATIENT'S OWN MEDICATION (NON-FORMULARY) (Emtricitabine/Tenofov Alafenam [Descovy 200-25 M PO SCH (10:29)
[2019-08-31] MEDS: FENOFIBRIC ACID 135 MG CAP PO SCH (10:29)
== END 2019-08-31 14:55 | disposition home or self-care (01) | DRG 772 ==
LOC: YASAS 09:57 → Y3W 12:45
PROVIDERS: ADMIT Neuromusculoskeletal Medicine & OMM; ATTEND Neuromusculoskeletal Medicine & OMM
PROC: HZ42ZZZ Group Counseling for Substance Abuse Treatment, Cognitive-Behavioral (ICD-10-PCS; principal; 2019-08-17)
DX: F10.20 Alcohol dependence, uncomplicated (principal); F14.10 Cocaine abuse, uncomplicated; F17.210 Nicotine dependence, cigarettes, uncomplicated; F19.282 Other psychoactive substance dependence with psychoactive substance-induced sleep disorder; Z21 Asymptomatic human immunodeficiency virus [HIV] infection status; I25.10 Atherosclerotic heart disease of native coronary artery without angina pectoris; I10 Essential (primary) hypertension; Z95.1 Presence of aortocoronary bypass graft; I25.2 Old myocardial infarction; E87.6 Hypokalemia; S01.512A Laceration without foreign body of oral cavity, initial encounter; Z79.02 Long term (current) use of antithrombotics/antiplatelets; Z79.82 Long term (current) use of aspirin; Y33.XXXA Other specified events, undetermined intent, initial encounter; Y93.89 Activity, other specified; Y92.238 Other place in hospital as the place of occurrence of the external cause; Y99.8 Other external cause status
CPT/HCPCS: 36415; 80048; 80053; 81003; 83735; 85027; 86593; 93005; 93010

== ENCOUNTER 2019-08-24 10:26 | Emergency (ER) | payer OTHER ==
[2019-08-24 10:32] VITALS: TEMP 98.2; BMI 28.1
[2019-08-24] MEDS ORDERED: LIDOCAINE 1%/EPI 1:100000 (20 ML MULTI DOSE VIAL) ONE (11:11)
--- NOTE | 2019-08-24 12:02 | PDOC ---
History of Present Illness - General Chief Complaint: Tongue Swelling Stated Complaint: BLEEDING Time Seen by Provider: 08/24/19 10:45 History Source: Patient Exam Limitations: No Limitations - History of Present Illness Initial Comments: 08/24/19 11:59 59-year-old male currently at [facility] presents to ED for evaluation of continued tongue bleeding 2 days. Patient states initially neck to his tongue with salt and vinegar chips and bleeding subsided shortly thereafter but this morning after he ate potato chips again the bleeding began and would not stop despite applying pressure. Patient is currently on Plavix and baby aspirin. patient with history of HIV, CABG, CAD, and hypertension. Is this a multiple visit Asthma Patient?: No Timing/Duration: 1-3 hours Severity: moderate Associated Symptoms: reports: other Past History - Travel Traveled outside of the country in the last 30 days: Yes - Past Medical History Allergies/Adverse Reactions: Allergies Allergy/AdvReac Type Severity Reaction Status Date / Time No Known Allergies Allergy Verified 08/24/19 10:30 Home Medications: Ambulatory Orders Amlodipine Besylate [Norvasc -] 5 mg PO DAILY 08/17/19 Aspirin [ASA -] 81 mg PO DAILY 08/17/19 Atorvastatin Calcium 20 mg PO DAILY 08/17/19 Clopidogrel Bisulfate [Clopidogrel] 75 mg PO DAILY 08/17/19 Dolutegravir Sodium [Tivicay] 50 mg PO DAILY 08/17/19 Emtricitabine/Tenofov Alafenam [Descovy 200-25 mg Tablet (Nf)] 1 each PO DAILY 08/17/19 Etravirine [Intelence -] 400 mg PO DAILY 08/17/19 Fenofibrate Nanocrystallized [Fenofibrate] 145 mg PO DAILY 08/17/19 Folic Acid 1 mg PO DAILY 08/17/19 Hydrochlorothiazide [Hctz -] 25 mg PO DAILY 08/17/19 Losartan Potassium [Cozaar] 100 mg PO DAILY 08/17/19 Metoprolol Succinate 50 mg PO DAILY 08/17/19 Multivitamin,Therapeutic [Thera] 1 each PO DAILY 08/17/19 Thiamine HCl [Vitamin B1 -] 50 mg PO DAILY 08/17/19 Asthma: No Cardiac Disorders: Yes (CAD with CABGx4 in 2010) COPD: No Diabetes: No GI Disorders: No Disorders: No HTN: Yes Kidney Stones: No Seizures: No - Surgical History Cardiac Surgery: Yes (CABGx4 in 2011) - Reproductive History Testicular Surgery: No - Immunization History Immunization Up to Date: Yes - Psycho Social/Smoking Cessation Hx Smoking History: Never smoked Have you smoked in the past 12 months: Yes Number of Cigarettes Smoked Daily: 3 Information on smoking cessation initiated: No 'Breaking Loose' booklet given: 08/17/19 Hx Alcohol Use: No Drug/Substance Use Hx: No Hx Substance Use Treatment: Yes Patient Lives Alone: Yes Lives with/in: lives alone Review of Systems - Review of Systems Able to Perform ROS?: Yes Constitutional: No: Symptoms Reported HEENTM: Yes: Other Integumentary: Yes: Other Hematologic/Lymphatic: No: Symptoms Reported *Physical Exam - Vital Signs Last Vital Signs Temp Pulse Resp BP Pulse Ox 98.2 F 83 17 158/93 97 08/24/19 10:30 08/24/19 10:30 08/24/19 10:30 08/24/19 10:30 08/24/19 10:30 - Physical Exam General Appearance: Yes: Nourished, Appropriately Dressed. No: Apparent Distress HEENT: positive: Other (Noted 0.5 cm linear opening to the tongue with continual oozing of blood ). negative: Pale Conjunctivae Respiratory/Chest: positive: Lungs Clear, Normal Breath Sounds. negative: Respiratory Distress, Accessory Muscle Use Integumentary: positive: Normal Color, Warm, Moist Neurologic: positive: Motor Strength 5/5 (Ambulatory) Procedures - Laceration/Wound Repair Face Wound Length: to 2.5 cm Wound Explored: clean Wound's Depth, Shape: superficial, linear Irrigated w/ Saline: No Betadine Prep: No Anesthesia: 1% Lidocaine w/ Epi Amount of Anesthetic (ccs): 2 Wound Repaired With: Sutures (2 absorbable chromic gut) Medical Decision Making - Medical Decision Making 08/24/19 11:05 Chief complaint: Bleeding from tongue since this morning after eating potato chips. Patient states similar symptoms approximately 1 week ago after eating potato chips also. Patient currently on Plavix and aspirin. Patient has no complaints of discomfort. Exam. Patient with active bleeding from small linear laceration of the tongue uncontrolled with pressure and application of Surgicel Plan: Laceration repair with absorbable sutures. 08/24/19 12:07 Patient reassessed no active bleeding. Patient will be discharged back to [facility] with supportive care instructions including soft warm to cold foods for the next 72 hours including fluids Discharge - Discharge Information Problems reviewed: Yes Clinical Impression/Diagnosis: Laceration of tongue Condition: Improved Disposition: HOME - Follow up/Referral - Patient Discharge Instructions Patient Printed Discharge Instructions: DI for Laceration Repair -- Simple Additional Instructions: Please eat soft nonabrasive foods for the next 72 hours drinking only warm to cold fluids. Please do not pick at area or rub against the roof of your mouth since there are sutures in place . The sutures are absorbable and will eventually fall out - Post Discharge Activity
[2019-08-24 13:46] VITALS: BP 149/78; PULSE 68
== END 2019-08-24 13:46 | disposition home or self-care (01) ==
LOC: JER 10:26
PROC: 0CQ7XZZ Repair Tongue, External Approach (ICD-10-PCS; principal; 2019-08-24)
DX: S01.512A Laceration without foreign body of oral cavity, initial encounter (principal); X58.XXXA Exposure to other specified factors, initial encounter; Y93.89 Activity, other specified; Y92.238 Other place in hospital as the place of occurrence of the external cause; Y99.8 Other external cause status; I25.10 Atherosclerotic heart disease of native coronary artery without angina pectoris; I10 Essential (primary) hypertension; Z95.1 Presence of aortocoronary bypass graft; Z21 Asymptomatic human immunodeficiency virus [HIV] infection status; Z79.02 Long term (current) use of antithrombotics/antiplatelets; Z79.82 Long term (current) use of aspirin
CPT/HCPCS: 99282-25